=== PATIENT | male | born 1975 | race Caucasian/White ===

== ENCOUNTER 2016-11-26 01:35 | Emergency (ER) | payer OTHER ==
[~2016-11-26] VITALS: Ht 170.2 cm; Wt 88.5 kg
[2016-11-26 01:49] VITALS: BP 179/120
--- NOTE | 2016-11-26 02:48 | NUR ---
AMBULATED TO ER BED 7
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
[2016-11-26 03:54] VITALS: BP 149/96
--- NOTE | 2016-11-26 03:55 | NUR ---
Patient discharged with v/s stable. Written and verbal after care instructions given and explained. Patient alert, oriented and verbalized understanding of instructions. Ambulatory with steady gait. All questions addressed prior to discharge. ID band removed. Patient advised to follow up with PMD. NO Rx WERE given. Patient educated on indication of medication including possible reaction and side effects. Opportunity to ask questions provided and answered.
== END 2016-11-26 03:54 | disposition home or self-care (01) ==
LOC: MED 01:35
DX: S61.214A Laceration without foreign body of right ring finger without damage to nail, initial encounter (principal); I10 Essential (primary) hypertension; F17.210 Nicotine dependence, cigarettes, uncomplicated; W45.8XXA Other foreign body or object entering through skin, initial encounter; Y93.89 Activity, other specified; Y92.89 Other specified places as the place of occurrence of the external cause; Y99.8 Other external cause status
CPT/HCPCS: 12001; 99283

== ENCOUNTER 2017-05-01 16:20 | Emergency (ER) | payer OTHER ==
[~2017-05-01] VITALS: Ht 170.2 cm; Wt 86.6 kg
[2017-05-01 16:29] VITALS: BP 157/119
[2017-05-01] MEDS ORDERED: IBUP800T55 PO (16:39)
[2017-05-01] MEDS ORDERED: TRAM50TA94 PO (16:39)
[2017-05-01] MEDS ORDERED: HYDR25TA32 PO (16:39)
[2017-05-01] MEDS ORDERED: FLONAS NS (16:39)
[2017-05-01] MEDS ORDERED: GABA-689 PO (16:39)
[2017-05-01] MEDS ORDERED: ENAL20TA89 PO (16:39)
[2017-05-01] MEDS ORDERED: [UNRECOGNIZED DRUG - CODE] PO (16:41)
[2017-05-01 19:20] VITALS: BP 142/93
--- NOTE | 2017-05-01 19:20 | NUR ---
Patient discharged with v/s stable. Written and verbal after care instructions given and explained. Patient alert, oriented and verbalized understanding of instructions. Ambulatory with steady gait. All questions addressed prior to discharge. ID band removed. Patient advised to follow up with PMD. Rx of Celebrex given. Patient educated on indication of medication including possible reaction and side effects. Opportunity to ask questions provided and answered.
== END 2017-05-01 19:20 | disposition home or self-care (01) ==
LOC: MED 16:20
DX: M17.12 Unilateral primary osteoarthritis, left knee (principal); M79.645 Pain in left finger(s); I10 Essential (primary) hypertension
CPT/HCPCS: 73130; 73562; 99284; J7030

== ENCOUNTER 2021-06-05 06:06 | Emergency (ER) | payer OTHER ==
[~2021-06-05] VITALS: Ht 172.7 cm; Wt 88.5 kg
[~2021-06-05 06:06] MED LIST: ENAL20TA89 PO; FLONAS NS; GABA-689 PO; HYDR25TA32 PO; IBUP800T55 PO; TRAM50TA1 PO; [UNRECOGNIZED DRUG - CODE] PO
[2021-06-05 06:10] VITALS: BP 171/90
--- NOTE | 2021-06-05 06:10 | NUR ---
to bed ambulatory
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
[2021-06-05] MEDS ORDERED: KETOROLAC 60 MG/2 ML VIAL IM ONE (06:56)
--- NOTE | 2021-06-05 06:59 | NUR ---
ERMD AT BEDSIDE.
[2021-06-05] MEDS: KETOROLAC 60 MG/2 ML VIAL IM ONE (07:01)
--- NOTE | 2021-06-05 07:11 | NUR ---
REPORT GIVEN TO JANNET EDGAR FOR CONTINUITY OF CARE.
--- NOTE | 2021-06-05 07:17 | NUR ---
RECEIVED REPORT FROM MEIR POWER, ASSUMED CARE AT THIS TIME.
--- NOTE | 2021-06-05 07:18 | NUR ---
[employer]TER AT BED SIDE
[2021-06-05] MEDS ORDERED: AMOX-1000 PO (07:34)
[2021-06-05] MEDS ORDERED: IBUP-2213 PO (07:34)
[2021-06-05] MEDS ORDERED: ACET-8386 PO (07:34)
[2021-06-05 08:02] VITALS: BP 171/90
--- NOTE | 2021-06-05 08:03 | NUR ---
Patient discharged with v/s stable. Written and verbal after care instructions given and explained. Patient alert, oriented and verbalized understanding of instructions. Ambulatory with steady gait. All questions addressed prior to discharge. ID band removed. Patient advised to follow up with PMD. Rx of NORCO 5-325, AUGMENTIN 875-125, IBUPROFEN given. Patient educated on indication of medication including possible reaction and side effects. Opportunity to ask questions provided and answered.
== END 2021-06-05 08:02 | disposition home or self-care (01) ==
LOC: MED 06:06
DX: S61.411A Laceration without foreign body of right hand, initial encounter (principal); Y04.8XXA Assault by other bodily force, initial encounter; Y93.89 Activity, other specified; Y92.89 Other specified places as the place of occurrence of the external cause; Y99.8 Other external cause status
CPT/HCPCS: 73130; 90471; 90715; 96372; 99284; J1885